=== PATIENT | male | born 1975 | race Caucasian/White ===

== ENCOUNTER 2021-07-15 18:03 | Emergency (ER) | payer MEDICAID ==
[~2021-07-15] VITALS: Ht 177.8 cm; Wt 90.7 kg
[2021-07-15] MEDS ORDERED: COREG (18:17)
[2021-07-15] MEDS ORDERED: CLONIDINE (18:17)
[2021-07-15] MEDS ORDERED: HYDRALAZINE (18:17)
[2021-07-15] MEDS ORDERED: PERCOCET 5-3251 EACH PO ×2 (19:19→19:37)
[2021-07-15 19:45] VITALS: BP 130/74
== END 2021-07-15 19:45 | disposition home or self-care (01) ==
LOC: M.ERS 18:03
DX: M79.661 Pain in right lower leg (principal); I10 Essential (primary) hypertension; E11.9 Type 2 diabetes mellitus without complications; Z99.2 Dependence on renal dialysis; Z79.899 Other long term (current) drug therapy; Z88.8 Allergy status to other drugs, medicaments and biological substances; Z88.6 Allergy status to analgesic agent; Z91.041 Radiographic dye allergy status

== ENCOUNTER 2021-11-10 11:18 | Inpatient (IN) | payer MEDICAID ==
[~2021-11-10] VITALS: Ht 175.3 cm; Wt 122.7 kg
[~2021-11-10 11:18] MED LIST: CLONIDINE; COREG; HYDRALAZINE; PERCOCET 5-3251 EACH PO
[2021-11-10] MEDS ORDERED: CLONIDINE HCL0.1 M1 PO (13:21)
[2021-11-10] MEDS ORDERED: FAMOTIDINE 20 M20 MG PO (13:22)
[2021-11-10] MEDS ORDERED: HYDRALAZINE HC100 MG PO (13:23)
[2021-11-10 13:26] VITALS: BP 154/78
[2021-11-10 16:16] LABS: HEMATOCRIT 30.1 % (42.0-52.0); HEMOGLOBIN 9.4 gm/dL (14.0-18.0); MCH 25.5 pg (26.0-34.0); MCHC 31.2 g/dL (28.0-37.0); MCV 81.6 fL (80.0-100.0); MPV 9.5 fl. (7.2-11.1); NUCLEATED RBCS 0 /100WBC; PLATELET COUNT* 249 thou/uL (150-400); RBC 3.68 mil/uL (4.50-6.00); RDW-CV 18.8 % (10.5-14.5); WBC 10.3 thou/uL (4.0-11.0)
[2021-11-10 16:24] LABS: CALCIUM 8.2 mg/dL (8.5-10.1); CREATININE 10.9 mg/dL (0.6-1.3); POTASSIUM 4.9 mmol/L (3.5-5.1)
[2021-11-10 16:29] LABS: ALBUMIN 2.4 g/dL (3.4-5.0); TOTAL BILIRUBIN 0.4 mg/dL (<0.1-1.0); TOTAL PROTEIN 7.5 g/dL (6.4-8.2)
[2021-11-10] MEDS ORDERED: NORVASC10 MG PO (16:38)
[2021-11-10] MEDS ORDERED: ASA81BEC PO (16:38)
[2021-11-10] MEDS ORDERED: XANAX 0.25 MG0.25 MG PO (16:38)
[2021-11-10] MEDS ORDERED: LIPITOR80 MG PO (16:39)
[2021-11-10] MEDS ORDERED: AZITHROMYCIN500 MG PO (16:39)
[2021-11-10] MEDS ORDERED: CATAPRES0.2 MG PO (16:39)
[2021-11-10] MEDS ORDERED: CEFDINIR300 MG PO (16:39)
[2021-11-10] MEDS ORDERED: PLAVIX 75 MG TA75 MG PO (16:40)
[2021-11-10] MEDS ORDERED: HYDRALAZINE 2525 MG PO (16:40)
[2021-11-10 16:41] LABS: URINE BILIRUBIN NEGATIVE (Negative); URINE BLOOD 1+ (Negative); URINE CLARITY CLEAR; URINE COLOR YELLOW; URINE GLUCOSE-RANDOM 3+ (Negative); URINE KETONES NEGATIVE (Negative); URINE LEUKOCYTES NEGATIVE (Negative); URINE NITRITE NEGATIVE (Negative); URINE PROTEIN 3+ (Negative); URINE SPECIFIC GRAVITY 1.025 (1.005-1.030); URINE UROBILINOGEN 0.2 E.U./dl (0.2-1.0)
[2021-11-10] MEDS ORDERED: LANTUSSOLASTAR SUBQ (16:41)
[2021-11-10] MEDS ORDERED: TOPROL XL100 MG PO (16:41)
[2021-11-10] MEDS ORDERED: NICOTINE PATCH1 EAC2 (16:42)
[2021-11-10 16:49] LABS: SQUAMOUS 0-3 Few /LPF (0-3); URINE RBC 3-10 Few /HPF (0-2); URINE WBC 0-5 Rare /HPF (0-5)
[2021-11-10 16:50] LABS: BACTERIA 1-9 Few /HPF (None Seen); CRYSTALS None Seen /LPF (None Seen); HYALINE CASTS 0-3 Few /LPF (None Seen)
[2021-11-10 17:08] LABS: ABSOLUTE BASOPHILS 0.3 thou/uL (0.0-0.2); ABSOLUTE EOSINOPHILS 0.2 thou/uL (0.0-0.7); ABSOLUTE LYMPHOCYTES 0.4 thou/uL (0.8-5.3); ABSOLUTE MONOCYTES 0.1 thou/uL (0.0-1.2); ABSOLUTE NEUTROPHILS 9.3 thou/uL (1.6-8.1)
[2021-11-10 17:09] LABS: MACROCYTES Occasional; PLATELET ESTIMATE ADEQUATE
[2021-11-10 17:10] LABS: ANISOCYTOSIS 1+; HYPOCHROMASIA Occasional; MICROCYTES Occasional
[2021-11-10 20:30] VITALS: BP 147/79
[2021-11-11] VITALS (8 sets, daily range): BP systolic 136–170; BP diastolic 62–80
--- NOTE | 2021-11-11 14:41 | NUR ---
PATIENT ARRIVED TO PREOP HOLDING FROM ER. PATIENT VITALS OBTAINED. PATIENT GIVEN LUNCH TRAY. BLOOD SUGAR WAS OBTAINED. PATIENT FINISHED MEAL. MADDIE ARRIVED AT 1414 TO TRANSFER PATIENT TO UNIT FOR CARE.
[2021-11-12] VITALS: BP 138/64
[2021-11-12] MEDS ORDERED: OXYCODONE HCL10 MG PO (01:36)
--- NOTE | 2021-11-12 04:52 | NUR ---
PT A&OX4, VSS ON ROOM AIR, IV SALINE LOCKED, DIALYSIS PATIENT, MED/SURG STATUS. PT CO PAIN, STATES MORPHINE NOT WORKING; PHYSICIAN CONTACTED AT 2015, ORDER GIVEN FOR TORADOL 30 MG Q6H PRN, ADMINISTERED ORDERED. AT APPROX 2144 PT STATES HE TAKES OXYCODONE 15MG TID AT HOME WITHOUT ANY SIDE EFFECTS. PHYSICIAN CONTACTED AT 2203, ORDER GIVEN FOR OXY IR 15 MG TID PRN. PT SLEEPING WELL SINCE APPROX 0100, WILL CONTINUE TO MONITOR.
[2021-11-12 06:15] VITALS: BP 116/62
[2021-11-12 08:00] VITALS: BP 126/71
[2021-11-12 09:07] LABS: ABSOLUTE BASOPHILS 0.1 thou/uL (0.0-0.2); ABSOLUTE EOSINOPHILS 0.2 thou/uL (0.0-0.7); ABSOLUTE LYMPHOCYTES 0.5 thou/uL (0.8-5.3); ABSOLUTE MONOCYTES 0.7 thou/uL (0.0-1.2); ABSOLUTE NEUTROPHILS 6.6 thou/uL (1.6-8.1); BASOPHILS 0.8 %; EOSINOPHILS 1.9 %; HEMATOCRIT 26.6 % (42.0-52.0); HEMOGLOBIN 8.3 gm/dL (14.0-18.0); LYMPHOCYTES 6.4 %; MCH 25.3 pg (26.0-34.0); MCV 81.7 fL (80.0-100.0); MPV 8.7 fl. (7.2-11.1); NUCLEATED RBCS 0 /100WBC; PLATELET COUNT* 178 thou/uL (150-400); POLYS 81.9 %; RBC 3.26 mil/uL (4.50-6.00); RDW-CV 18.6 % (10.5-14.5); WBC 8.1 thou/uL (4.0-11.0)
[2021-11-12 10:21] LABS: CALCIUM 7.9 mg/dL (8.5-10.1); CREATININE 8.6 mg/dL (0.6-1.3); PHOSPHORUS* 10.1 mg/dL (2.5-4.9); POTASSIUM 4.4 mmol/L (3.5-5.1); TOTAL BILIRUBIN 0.6 mg/dL (<0.1-1.0); TOTAL PROTEIN 6.9 g/dL (6.4-8.2)
--- NOTE | 2021-11-12 11:09 | NUR ---
CM ASSESSMENT: PT A&O, AND INDEPENDENT WITH ADL'S. PT WITH BILAT BKA. PT RESIDES AT HOME ALONE. PT USES A WALKER AND WHEELCHAIR FOR MOBILITY. PT HAS 0 HX OF HH OR SNF. PT INFORMS THAT HE IS CURRENT WITH [facility] ([facility] @ [address]). CM TO CONFIRM THIS AND FAX PT'S CLINICAL INFO TO [facility]. PT INFORMS THAT HE USES PUBLIC TRANSPORATION TO GET TO AND FROM [facility]. CM D/C PLANNING NEEDS TBD AT THIS TIME. CM WILL REMAIN AVAILABLE TO ASSIST AND FOLLOW NEEDED.
--- NOTE | 2021-11-12 11:50 | NUR ---
CHELSEA IRWIN REQUESTING HEP B SURFACE ANTIGEN LAB TO BE DRAWN. ORDER PUT IN PER .
--- NOTE | 2021-11-12 12:37 | NUR ---
WOUND CARE: PATIENT SEEN TO ASSESS RIGHT MEDIAL STUMP WOUND. DRESSING WAS REMOVED AND NOTED TO HAVE MODERATE SEROUS DRAINAGE. WOUND MEASURED 1.0 X 1.0 X 2.0 CM. GAVIN WOUND NORMAL WITH FLAT INTACT EDGES. NO REDDNESS,INDERATION OR OTHER SIGN OF INFECTION NOTED. WOUND CLEANSED AND DRESSED PER ORDER. TOLERATED WELL. PATIENT WAS SEEN IN DIALYSIS ROOM. HE DENIES OTHER NEEDS AT THIS TIME. WILL CONTINUE TO MONITOR AND ASSIST NEEDED.
[2021-11-12] MEDS ORDERED: MINOCYCLINE HC100 M2 PO (14:18)
[2021-11-12 16:06] VITALS: BP 122/57
[2021-11-12 16:10] VITALS: BP 122/57
--- NOTE | 2021-11-12 18:27 | NUR ---
PT GIVEN DISCHARGE PAPERWORK AND VOICED UNDERSTANDING OF DISCHARGE INSTRUCTIONS. PT IV SUCCESSFULLY REMOVED WITH NO COMPLICATIONS. PT WHEELED OFF UNIT [facility]IA [facility] AT 1820.
[2021-11-15 02:06] LABS: HEPATITIS B SURFACE AG Negative (Negative)
[2021-11-16] MEDS ORDERED: PERCOCET 10-321 EAC1 PO (06:43)
[2021-11-16] MEDS ORDERED: LANTUS SUBQ (13:12)
== END 2021-11-12 18:20 | disposition home health service (06) | DRG 602 ==
LOC: M.ERS 11:18 → M.TBA-ER 16:55 → M.TBA 11-11 13:26 → M.2W 11-11 18:40
PROVIDERS: Internal Medicine; Internal Medicine Nephrology; Physician Assistant; ADMIT Internal Medicine; ATTEND Internal Medicine
DX: L03.115 Cellulitis of right lower limb (principal); N18.6 End stage renal disease; E87.1 Hypo-osmolality and hyponatremia; I12.0 Hypertensive chronic kidney disease with stage 5 chronic kidney disease or end stage renal disease; Z20.822 Contact with and (suspected) exposure to COVID-19; Z88.8 Allergy status to other drugs, medicaments and biological substances; E11.22 Type 2 diabetes mellitus with diabetic chronic kidney disease; Z99.2 Dependence on renal dialysis; Z79.4 Long term (current) use of insulin; Z89.512 Acquired absence of left leg below knee; Z89.511 Acquired absence of right leg below knee; Z86.14 Personal history of Methicillin resistant Staphylococcus aureus infection; D63.1 Anemia in chronic kidney disease; F17.210 Nicotine dependence, cigarettes, uncomplicated

== ENCOUNTER 2021-12-03 00:12 | Emergency (ER) | payer MEDICAID ==
[~2021-12-03] VITALS: Ht 177.8 cm; Wt 99.8 kg
[~2021-12-03 00:12] MED LIST changes: +ASA81BEC PO; +AZITHROMYCIN500 MG PO; +CATAPRES0.2 MG PO; +CEFDINIR300 MG PO; +CLONIDINE HCL0.1 M1 PO; +FAMOTIDINE 20 M20 MG PO; +HYDRALAZINE 2525 MG PO; +HYDRALAZINE HC100 MG PO; +LANTUS SUBQ; +LANTUSSOLASTAR SUBQ; +LIPITOR80 MG PO; +MINOCYCLINE HC100 M2 PO; +NEPHRO-VITE TA0.8 MG PO; +NICOTINE PATCH1 EAC2; +NORVASC10 MG PO; +OXYCODONE HCL10 MG PO; +PERCOCET 10-321 EAC1 PO; +PLAVIX 75 MG TA75 MG PO; +PROTONIX40 M2 PO; +TOPROL XL100 MG PO; +XANAX 0.25 MG0.25 MG PO
[2021-12-03 01:22] LABS: ABSOLUTE BASOPHILS 0.1 thou/uL (0.0-0.2); ABSOLUTE EOSINOPHILS 0.2 thou/uL (0.0-0.7); ABSOLUTE LYMPHOCYTES 0.6 thou/uL (0.8-5.3); ABSOLUTE NEUTROPHILS 7.1 thou/uL (1.6-8.1); BASOPHILS 0.7 %; HEMATOCRIT 26.3 % (42.0-52.0); HEMOGLOBIN 8.1 gm/dL (14.0-18.0); LYMPHOCYTES 6.5 %; MCH 26.6 pg (26.0-34.0); MCHC 30.9 g/dL (28.0-37.0); MCV 85.9 fL (80.0-100.0); MONOCYTES 11.7 %; MPV 9.4 fl. (7.2-11.1); NUCLEATED RBCS 0 /100WBC; PLATELET COUNT* 210 thou/uL (150-400); POLYS 79.1 %; RBC 3.06 mil/uL (4.50-6.00); RDW-CV 20.1 % (10.5-14.5); WBC 8.9 thou/uL (4.0-11.0)
[2021-12-03 01:27] LABS: CALCIUM 8.1 mg/dL (8.5-10.1); POTASSIUM 5.2 mmol/L (3.5-5.1)
[2021-12-03 01:32] LABS: ALBUMIN 2.7 g/dL (3.4-5.0); MAGNESIUM 1.6 mg/dL (1.8-2.4); TOTAL BILIRUBIN 0.5 mg/dL (<0.1-1.0); TOTAL PROTEIN 7.4 g/dL (6.4-8.2)
[2021-12-03 02:37] VITALS: BP 152/87
[2021-12-03 05:16] LABS: ANISOCYTOSIS 1+; HYPOCHROMASIA 1+; POIKILOCYTOSIS 1+
== END 2021-12-03 02:39 | disposition home or self-care (01) ==
LOC: M.ERS 00:12
PROVIDERS: Personal Emergency Response Attendant
DX: R60.9 Edema, unspecified (principal); Z91.15 Patient's noncompliance with renal dialysis; I10 Essential (primary) hypertension; E11.8 Type 2 diabetes mellitus with unspecified complications; Z88.5 Allergy status to narcotic agent; Z88.8 Allergy status to other drugs, medicaments and biological substances; Z91.041 Radiographic dye allergy status; Z99.2 Dependence on renal dialysis; Z79.4 Long term (current) use of insulin